=== PATIENT | female | born 1935 | race African-American/Black ===

== ENCOUNTER 2017-03-26 21:41 | Inpatient (IN) | payer MEDICARE, MEDICAID ==
[~2017-03-26] VITALS: Ht 154.9 cm; Wt 85.7 kg
[~2017-03-26 21:41] MED LIST: ASPI-1159 PO; ATOR10TA69 PO; CHOL100046 PO; DOCU-138 PO; HYDR100T26 PO; LOSA100T14 PO; METO25TA6 PO; NEPVIT PO; NIFE30TA94 PO; SEVE800T8 PO
[2017-03-26 23:13] LABS: BASOPHILS % 0.5 % (0.0-2.0); EOSINOPHILS % 1.3 % (0.0-5.0); HEMATOCRIT. 31.8 % (36.0-48.0); HEMOGLOBIN. 10.4 g/dL (12.0-16.0); LYMPHOCYTES % 10.4 % (20.0-50.0); MEAN CORPUSCULAR HEMOGLOBIN 31.7 pg (28.0-32.0); MONOCYTES % 6.5 % (2.0-8.0); NEUTROPHILS % 81.3 % (40.0-76.0); PLATELET 260 x1000/uL (130-400); RED BLOOD CELL COUNT 3.27 mill/uL (4.2-5.4); RED CELL DISTRIBUTION WIDTH 13.3 % (11.6-14.6)
[2017-03-26 23:18] LABS: CHLORIDE 92 mEq/L (98-107)
[2017-03-26 23:22] LABS: PARTIAL THROMBOPLASTIN TIME 28.1 sec (23.4-31.0); PROTHROMBIN TIME 10.2 sec (9.4-11.6)
[2017-03-26 23:29] LABS: PHOSPHORUS 4.3 mg/dL (2.5-4.9); TROPONIN I < 0.02 ng/mL (0.00-0.04)
[2017-03-27] MEDS ORDERED: CLONIDINE 0.2MG TABLET PO ONE (02:45)
[2017-03-27 11:50] VITALS: BP 153/61
[2017-03-27] MEDS ORDERED: HYDRALAZINE 20MG/ML VIAL IV PRN (14:15)
[2017-03-27] MEDS ORDERED: CLONIDINE 0.1MG TABLET PO PRN (14:30)
[2017-03-27] MEDS: NIFEDIPINE XL 30MG TAB PO SCH ×2 (14:30→21:29)
[2017-03-27 16:00] VITALS: BP 166/56
[2017-03-27] MEDS ORDERED: PNEUMOCOCCAL 23-VAL P-SAC VAC 0.5 ML IM ONE (16:15)
[2017-03-27] MEDS ORDERED: DEXTROSE 50% WATER 50ML SYRINGE IV PRN (18:00)
[2017-03-27] MEDS: ASPIRIN 81MG EC TABLET PO SCH (18:38)
[2017-03-27] MEDS: LOSARTAN POTASSIUM 50 MG TABLET PO SCH ×2 (18:43→21:22)
[2017-03-27] MEDS: NITROGLYCERIN OINT 1GM/INCH UDPKT TD SCH (18:48)
[2017-03-27 20:00] VITALS: BP 170/48
[2017-03-27] MEDS: METOPROLOL TARTRATE 25MG TABLET PO SCH (21:00)
[2017-03-27] MEDS: ATORVASTATIN CALCIUM 10MG TABLET PO SCH ×2 (21:12→21:22)
[2017-03-27] MEDS: BLOOD SUGAR DIAGNOSTIC STRIP TEST SCH ×2 (21:16→21:23)
[2017-03-27 21:27] VITALS: BP 150/48
[2017-03-27] MEDS: INSULIN LISPRO 100 UNITS/ML SUBCUT SCH (21:27)
[2017-03-27] MEDS: HYDRALAZINE HCL 25MG TABLET PO SCH (21:29)
[2017-03-28] VITALS: BP 172/60
[2017-03-28] MEDS: NITROGLYCERIN OINT 1GM/INCH UDPKT TD SCH ×3 (00:57→12:00)
[2017-03-28 04:00] VITALS: BP 164/64
[2017-03-28 05:43] VITALS: BP 168/65
[2017-03-28] MEDS: HYDRALAZINE HCL 25MG TABLET PO SCH ×2 (05:44→13:28)
[2017-03-28 06:21] LABS: BASOPHILS % 0.9 % (0.0-2.0); EOSINOPHILS % 1.4 % (0.0-5.0); HEMATOCRIT. 29.7 % (36.0-48.0); HEMOGLOBIN. 9.8 g/dL (12.0-16.0); LYMPHOCYTES % 10.8 % (20.0-50.0); MEAN CORPUSCULAR HEMOGLOBIN 31.9 pg (28.0-32.0); MEAN CORPUSCULAR VOLUME 97.1 fL (81.0-99.0); MEAN PLATELET VOLUME 9.4 fl (7.4-10.4); MONOCYTES % 7.5 % (2.0-8.0); NEUTROPHILS % 79.4 % (40.0-76.0); PLATELET 256 x1000/uL (130-400); RED BLOOD CELL COUNT 3.06 mill/uL (4.2-5.4); RED CELL DISTRIBUTION WIDTH 13.2 % (11.6-14.6)
[2017-03-28] MEDS: INSULIN LISPRO 100 UNITS/ML SUBCUT SCH ×2 (06:22→12:27)
[2017-03-28 06:57] LABS: CHLORIDE 99 mEq/L (98-107); CREATINE KINASE 51 IU/L (26-192); CREATINE KINASE MB FRACTION 0.6 ng/mL (0.5-3.6); HDL CHOLESTEROL 79 mg/dL (40-59); LDL CHOLESTEROL 53 mg/dL (5-100); PHOSPHORUS 3.6 mg/dL (2.5-4.9); TROPONIN I < 0.02 ng/mL (0.00-0.04)
[2017-03-28] MEDS ORDERED: MIDAZOLAM HCL 2 MG/2 ML VIAL ONE (07:42)
[2017-03-28] MEDS ORDERED: IODIXANOL 320MG/ML 100 ML BOTTLE IV ONE (07:43)
[2017-03-28] MEDS ORDERED: FENTANYL CITRATE/PF 50MCG/ML 2ML VIAL ONE (07:43)
[2017-03-28] MEDS ORDERED: LIDOCAINE HCL 1% 20ML VIAL (Pyxis) INJ ONE (07:44)
[2017-03-28] MEDS ORDERED: ASPIRIN/SOD BICARB/CITRIC ACID 324MG TAB EFF ONE (07:49)
[2017-03-28] MEDS ORDERED: ONDANSETRON HCL 4MG/2ML VIAL IV PRN (08:45)
[2017-03-28] MEDS ORDERED: ACETAMINOPHEN 325MG TABLET PO PRN (08:45)
[2017-03-28] MEDS ORDERED: ATROPINE SULFATE 1MG/10ML SYR IV PRN (08:45)
[2017-03-28] MEDS ORDERED: MORPHINE SULFATE 4 MG/ML CPJ (NOT FOR IM USE) IV PRN (09:00)
[2017-03-28] MEDS ORDERED: NICARDIPINE 100MCG/ML 10ML VIAL (CATH LAB) IV ONE (11:27)
[2017-03-28] MEDS ORDERED: NITROGLYCERIN 50MCG/ML 10ML VIAL (CATH LAB) IV ONE (11:27)
[2017-03-28] MEDS ORDERED: HEPARIN SODIUM 1,000 UNIT/1ML VIAL IV ONE (11:27)
[2017-03-28 11:43] VITALS: BP 186/56
[2017-03-28] MEDS: ASPIRIN 81MG EC TABLET PO SCH (11:59)
[2017-03-28] MEDS: LOSARTAN POTASSIUM 50 MG TABLET PO SCH (11:59)
[2017-03-28] MEDS: NIFEDIPINE XL 30MG TAB PO SCH (12:00)
[2017-03-28] MEDS: METOPROLOL TARTRATE 25MG TABLET PO SCH (12:00)
[2017-03-28] MEDS: BLOOD SUGAR DIAGNOSTIC STRIP TEST SCH (12:07)
[2017-03-28 13:48] VITALS: BP 157/44
== END 2017-03-28 14:00 | disposition home or self-care (01) | DRG 286 ==
LOC: ER 21:43 → 8WST 23:44 → EDBEDREQTM 23:46 → EDBEDREQ 23:46 → ENRESERV 03-27 10:41
PROVIDERS: ADMIT Internal Medicine; ATTEND Internal Medicine
PROC: B2151ZZ Fluoroscopy of Left Heart using Low Osmolar Contrast (ICD-10-PCS; 2017-03-28)
PROC: B2111ZZ Fluoroscopy of Multiple Coronary Arteries using Low Osmolar Contrast (ICD-10-PCS; 2017-03-28)
PROC: 4A023N7 Measurement of Cardiac Sampling and Pressure, Left Heart, Percutaneous Approach (ICD-10-PCS; principal; 2017-03-28 09:00)
DX: R07.89 Other chest pain (principal); N18.6 End stage renal disease; E46 Unspecified protein-calorie malnutrition; E11.22 Type 2 diabetes mellitus with diabetic chronic kidney disease; E11.65 Type 2 diabetes mellitus with hyperglycemia; I12.0 Hypertensive chronic kidney disease with stage 5 chronic kidney disease or end stage renal disease; K21.9 Gastro-esophageal reflux disease without esophagitis; E78.00 Pure hypercholesterolemia, unspecified; D63.8 Anemia in other chronic diseases classified elsewhere; D72.829 Elevated white blood cell count, unspecified; Z99.2 Dependence on renal dialysis; Z79.82 Long term (current) use of aspirin; Z90.49 Acquired absence of other specified parts of digestive tract; Z79.899 Other long term (current) drug therapy; Z68.35 Body mass index [BMI] 35.0-35.9, adult
CPT/HCPCS: 36415; 71045; 80053; 80061; 82550; 82553; 82962; 83036; 83690; 83735; 83880; 84100; 84443; 84484; 85025; 85379; 85610; 85730; 90732; 93005; 93458; 99285; C1769; C1893; J1644; J1815; J2250; J3010; J3490; Q9967

== ENCOUNTER 2019-10-15 08:10 | Inpatient (IN) | payer MEDICARE, MEDICAID ==
[~2019-10-15] VITALS: Ht 162.6 cm; Wt 74.4 kg
[~2019-10-15 08:10] MED LIST changes: -ASPI-1159 PO; +ASPI-1497 PO; +BENA20TA10 MT; +HYDR100T26 MT; -HYDR100T26 PO; -LOSA100T14 PO; -NIFE30TA94 PO
[2019-10-15] MEDS ORDERED: SODIUM CHLORIDE 0.9% 1,000 ML IV ONE (09:06)
[2019-10-15 09:24] LABS: HEMATOCRIT. 30.6 % (36.0-48.0); HEMOGLOBIN. 10.2 g/dL (12.0-16.0); MEAN CORPUSCULAR HEMOGLOBIN 33.5 pg (28.0-32.0); MEAN CORPUSCULAR VOLUME 100.6 fL (81.0-99.0); MEAN PLATELET VOLUME 9.3 fl (7.4-10.4); PLATELET 207 x1000/uL (130-400); RED BLOOD CELL COUNT 3.04 mill/uL (4.2-5.4); RED CELL DISTRIBUTION WIDTH 13.6 % (11.6-14.6)
[2019-10-15 09:34] LABS: CHLORIDE 95 mEq/L (98-107)
[2019-10-15 09:36] LABS: BG BASE EXCESS -3.4 mmol/L (-2.0-2.0); BG CARBOXYHEMOGLOBIN 0.3 % (0.5-1.5); BG DEOXYHEMOGLOBIN 3.2 % (0.0-5.0); BG HCO3 ACT 20.5 mmol/L (22.0-26.0); BG METHEMOGLOBIN 0.1 % (0.0-1.5); BG OXYGEN SATURATION 96.8 % (92.0-98.5); BG OXYHEMOGLOBIN 96.4 % (94.0-97.0); BG PCO2 32.8 mmHg (35.0-45.0); BG PH 7.414 (7.350-7.450); BG PO2 96.6 mmHg (75.0-100.0); BG SAMPLE SITE LEFT RADIAL; BG TOTAL HEMOGLOBIN 10.9 g/dL (12.0-18.0); BG VENT MODE ROOM AIR
[2019-10-15 09:38] LABS: ETHANOL BLOOD < 10 mg/dL
[2019-10-15 09:42] LABS: CREATINE KINASE 89 IU/L (26-192)
[2019-10-15 09:51] LABS: PLATELET ESTIMATE NORMAL
[2019-10-15] MEDS ORDERED: LABETALOL 5MG/ML SYR 20 MG/4 ML SYRINGE IV ONE (11:00)
[2019-10-15] MEDS ORDERED: INSULIN REGULAR (HUMULIN R) 300UNITS/3ML SUBCUT ONE (11:00)
[2019-10-15] MEDS ORDERED: ACETAMINOPHEN 325MG TABLET PO PRN ×2 (16:00)
[2019-10-15] MEDS ORDERED: ONDANSETRON HCL 4MG/2ML INJ IV PRN (16:00)
[2019-10-15] MEDS ORDERED: DEXTROSE 50% WATER 50ML SYRINGE IV PRN (16:00)
[2019-10-15] MEDS ORDERED: GUAIFENESIN 200MG/10ML SUGAR FREE UDC PO PRN (16:00)
[2019-10-15] MEDS ORDERED: HYDROCODONE/ACETAMINOPHEN 10/325MG TABLET PO PRN (16:00)
[2019-10-15] MEDS ORDERED: ENOXAPARIN 40MG/0.4ML SYR SUBCUT SCH (16:00)
[2019-10-15] MEDS ORDERED: MAGNESIUM/ALUMINUM HYDROXIDE/SIMETHICONE 30ML UDC PO PRN (16:00)
[2019-10-15] MEDS: CLONIDINE 0.1MG TABLET PO PRN (18:18)
[2019-10-15] MEDS: ENOXAPARIN 30MG/0.3ML SYR SUBCUT SCH (18:18)
[2019-10-15] MEDS: BLOOD SUGAR DIAGNOSTIC STRIP TEST SCH ×2 (18:24→21:00)
[2019-10-15] MEDS: INSULIN LISPRO 100 UNITS/ML SUBCUT SCH ×2 (18:28→22:20)
[2019-10-15] MEDS ORDERED: LABETALOL 5MG/ML SYR 20 MG/4 ML SYRINGE IV NR (19:17)
[2019-10-15 21:30] VITALS: BP 206/173
[2019-10-15] MEDS: FAMOTIDINE 20MG TABLET PO SCH (22:19)
[2019-10-15] MEDS: ZOLPIDEM TARTRATE 5MG TABLET PO PRN (22:24)
[2019-10-15] MEDS: SODIUM CHLORIDE 0.9% INJ 3ML FLUSH IVF SCH (22:33)
[2019-10-16] VITALS: BP 163/43
[2019-10-16] MEDS: CLONIDINE 0.1MG TABLET PO PRN (00:42)
[2019-10-16] MEDS: DIPHENHYDRAMINE 50MG/ML VIAL IV PRN (02:26)
[2019-10-16 04:00] VITALS: BP 112/65
[2019-10-16] MEDS: BLOOD SUGAR DIAGNOSTIC STRIP TEST SCH ×4 (06:49→21:03)
[2019-10-16 07:29] LABS: CHLORIDE 98 mEq/L (98-107)
[2019-10-16 07:38] LABS: PHOSPHORUS 4.3 mg/dL (2.5-4.9)
[2019-10-16 07:55] LABS: BASOPHILS % 0.8 % (0.0-2.0); EOSINOPHILS % 0.6 % (0.0-5.0); HEMATOCRIT. 27.3 % (36.0-48.0); HEMOGLOBIN. 9.2 g/dL (12.0-16.0); LYMPHOCYTES % 8.1 % (20.0-50.0); MEAN CORPUSCULAR HEMOGLOBIN 33.4 pg (28.0-32.0); MONOCYTES % 7.4 % (2.0-8.0); NEUTROPHILS % 83.1 % (40.0-76.0); PLATELET 197 x1000/uL (130-400); RED BLOOD CELL COUNT 2.76 mill/uL (4.2-5.4); RED CELL DISTRIBUTION WIDTH 13.3 % (11.6-14.6)
[2019-10-16 08:00] VITALS: BP 202/76
[2019-10-16] MEDS: FOLIC ACID/VITAMIN B COMP W-C TABLET PO SCH (08:45)
[2019-10-16] MEDS: AMLODIPINE 10MG TABLET PO SCH (08:46)
[2019-10-16] MEDS: BENAZEPRIL 10MG TABLET PO SCH (08:46)
[2019-10-16] MEDS: ISOSORBIDE MONONITRATE 30MG TABLET SR 24HR PO SCH (08:46)
[2019-10-16] MEDS: INSULIN LISPRO 100 UNITS/ML SUBCUT SCH ×4 (08:47→21:00)
[2019-10-16] MEDS ORDERED: MEGE40TA7 PO (09:52)
[2019-10-16] MEDS ORDERED: ISOS30TA6 PO (09:52)
[2019-10-16] MEDS ORDERED: ZOLP5TAB2 PO (09:52)
[2019-10-16] MEDS ORDERED: VALA100044 PO (09:52)
[2019-10-16] MEDS ORDERED: AMLO10TA4 PO (09:52)
[2019-10-16] MEDS ORDERED: LACT10SO6 PO (09:52)
[2019-10-16] MEDS ORDERED: INSU100C6 SQ (09:52)
[2019-10-16 12:53] VITALS: BP 207/89
[2019-10-16] MEDS: CLONIDINE 0.2MG TABLET PO PRN ×2 (13:02→22:41)
[2019-10-16] MEDS: SODIUM CHLORIDE 0.9% INJ 3ML FLUSH IVF SCH ×2 (13:07→21:09)
[2019-10-16 16:00] VITALS: BP 136/53
[2019-10-16] MEDS: ENOXAPARIN 30MG/0.3ML SYR SUBCUT SCH (17:37)
[2019-10-16 20:00] VITALS: BP 210/75
[2019-10-16] MEDS: FAMOTIDINE 20MG TABLET PO SCH (21:03)
[2019-10-17] VITALS (8 sets, daily range): BP systolic 133–210; BP diastolic 66–79
[2019-10-17] MEDS: SODIUM CHLORIDE 0.9% INJ 3ML FLUSH IVF SCH ×3 (05:17→21:55)
[2019-10-17] MEDS: BLOOD SUGAR DIAGNOSTIC STRIP TEST SCH ×4 (07:01→21:55)
[2019-10-17] MEDS: INSULIN LISPRO 100 UNITS/ML SUBCUT SCH ×4 (07:35→21:54)
[2019-10-17] MEDS: FOLIC ACID/VITAMIN B COMP W-C TABLET PO SCH (09:09)
[2019-10-17] MEDS: AMLODIPINE 10MG TABLET PO SCH (09:09)
[2019-10-17] MEDS: BENAZEPRIL 10MG TABLET PO SCH (09:10)
[2019-10-17] MEDS: ISOSORBIDE MONONITRATE 30MG TABLET SR 24HR PO SCH (09:10)
[2019-10-17] MEDS: CLONIDINE 0.2MG TABLET PO PRN ×2 (09:12→17:48)
[2019-10-17] MEDS: HYDRALAZINE HCL 50MG TABLET PO SCH ×2 (13:03→21:55)
[2019-10-17] MEDS: METOPROLOL TARTRATE 25MG TABLET PO SCH ×2 (13:03→21:55)
[2019-10-17] MEDS: ENOXAPARIN 30MG/0.3ML SYR SUBCUT SCH (17:47)
[2019-10-17 18:14] LABS: VITAMIN B12 SERUM > 2000.0 pg/mL (211-911)
[2019-10-17] MEDS: FAMOTIDINE 20MG TABLET PO SCH (21:55)
[2019-10-18] VITALS: BP 180/65
[2019-10-18] MEDS: CLONIDINE 0.2MG TABLET PO PRN ×2 (00:30→18:23)
[2019-10-18 04:00] VITALS: BP 120/68
[2019-10-18] MEDS: SODIUM CHLORIDE 0.9% INJ 3ML FLUSH IVF SCH ×3 (06:34→22:00)
[2019-10-18] MEDS: BLOOD SUGAR DIAGNOSTIC STRIP TEST SCH ×4 (06:34→20:24)
[2019-10-18 08:00] VITALS: BP 132/75
[2019-10-18] MEDS: INSULIN LISPRO 100 UNITS/ML SUBCUT SCH ×4 (08:12→20:24)
[2019-10-18] MEDS: AMLODIPINE 10MG TABLET PO SCH (08:13)
[2019-10-18] MEDS: BENAZEPRIL 10MG TABLET PO SCH (08:13)
[2019-10-18] MEDS: HYDRALAZINE HCL 50MG TABLET PO SCH ×3 (08:13→21:00)
[2019-10-18] MEDS: METOPROLOL TARTRATE 25MG TABLET PO SCH ×3 (08:13→21:00)
[2019-10-18] MEDS: ZOLPIDEM TARTRATE 5MG TABLET PO PRN (08:14)
[2019-10-18] MEDS: FOLIC ACID/VITAMIN B COMP W-C TABLET PO SCH (08:14)
[2019-10-18] MEDS: ISOSORBIDE MONONITRATE 30MG TABLET SR 24HR PO SCH (08:14)
[2019-10-18 12:00] VITALS: BP 199/64
[2019-10-18] MEDS: ENOXAPARIN 30MG/0.3ML SYR SUBCUT SCH (15:47)
[2019-10-18 15:56] LABS: BASOPHILS % 0.9 % (0.0-2.0); EOSINOPHILS % 1.1 % (0.0-5.0); HEMATOCRIT. 31.6 % (36.0-48.0); HEMOGLOBIN. 10.8 g/dL (12.0-16.0); LYMPHOCYTES % 7.2 % (20.0-50.0); MEAN PLATELET VOLUME 8.8 fl (7.4-10.4); MONOCYTES % 9.2 % (2.0-8.0); NEUTROPHILS % 81.6 % (40.0-76.0); PLATELET 211 x1000/uL (130-400); RED BLOOD CELL COUNT 3.19 mill/uL (4.2-5.4); RED CELL DISTRIBUTION WIDTH 13.2 % (11.6-14.6)
[2019-10-18 16:00] VITALS: BP 185/74
[2019-10-18 20:00] VITALS: BP 177/60
[2019-10-18] MEDS: FAMOTIDINE 20MG TABLET PO SCH ×2 (20:23→21:00)
[2019-10-18] MEDS ORDERED: CLONIDINE HCL 0.3MG/24HR PATCH TD SCH (22:00)
[2019-10-19] VITALS: BP 185/53
[2019-10-19 04:00] VITALS: BP 168/46
[2019-10-19] MEDS: SODIUM CHLORIDE 0.9% INJ 3ML FLUSH IVF SCH ×3 (05:31→20:48)
[2019-10-19] MEDS: INSULIN LISPRO 100 UNITS/ML SUBCUT SCH ×4 (07:43→20:42)
[2019-10-19 08:00] VITALS: BP 192/54
[2019-10-19] MEDS: ISOSORBIDE MONONITRATE 30MG TABLET SR 24HR PO SCH (09:00)
[2019-10-19] MEDS: METOPROLOL TARTRATE 25MG TABLET PO SCH ×3 (09:00→20:48)
[2019-10-19] MEDS: FOLIC ACID/VITAMIN B COMP W-C TABLET PO SCH (09:00)
[2019-10-19] MEDS: HYDRALAZINE HCL 50MG TABLET PO SCH ×2 (09:00→20:48)
[2019-10-19] MEDS: AMLODIPINE 10MG TABLET PO SCH (09:05)
[2019-10-19] MEDS: BENAZEPRIL 10MG TABLET PO SCH (09:09)
[2019-10-19 12:00] VITALS: BP 193/54
[2019-10-19] MEDS: BLOOD SUGAR DIAGNOSTIC STRIP TEST SCH ×3 (12:20→20:41)
[2019-10-19 16:00] VITALS: BP 207/52
[2019-10-19] MEDS: ENOXAPARIN 30MG/0.3ML SYR SUBCUT SCH (16:00)
[2019-10-19] MEDS ORDERED: DEXT 5%/0.45% NACL 1000ML 1,000 ML IV ONE (18:15)
[2019-10-19] MEDS: LABETALOL 5MG/ML SYR 20 MG/4 ML SYRINGE IV PRN (18:42)
[2019-10-19 20:00] VITALS: BP 188/57
[2019-10-19] MEDS ORDERED: LABETALOL 5MG/ML SYR 20 MG/4 ML SYRINGE IV NR (20:30)
[2019-10-19] MEDS: FAMOTIDINE 20MG TABLET PO SCH (20:47)
[2019-10-20] VITALS (7 sets, daily range): BP systolic 153–177; BP diastolic 40–69
[2019-10-20] MEDS: LABETALOL 5MG/ML SYR 20 MG/4 ML SYRINGE IV PRN (03:54)
[2019-10-20] MEDS: CLONIDINE 0.2MG TABLET PO PRN (05:01)
[2019-10-20] MEDS: SODIUM CHLORIDE 0.9% INJ 3ML FLUSH IVF SCH ×2 (05:29→13:15)
[2019-10-20] MEDS: BLOOD SUGAR DIAGNOSTIC STRIP TEST SCH ×4 (07:55→21:48)
[2019-10-20] MEDS: ISOSORBIDE MONONITRATE 30MG TABLET SR 24HR PO SCH (10:00)
[2019-10-20] MEDS: METOPROLOL TARTRATE 25MG TABLET PO SCH ×2 (10:00→21:48)
[2019-10-20] MEDS: BENAZEPRIL 10MG TABLET PO SCH (10:01)
[2019-10-20] MEDS: FOLIC ACID/VITAMIN B COMP W-C TABLET PO SCH (10:01)
[2019-10-20] MEDS: AMLODIPINE 10MG TABLET PO SCH (10:01)
[2019-10-20] MEDS: HYDRALAZINE HCL 50MG TABLET PO SCH ×2 (10:01→21:48)
[2019-10-20] MEDS: INSULIN LISPRO 100 UNITS/ML SUBCUT SCH ×5 (10:03→21:00)
[2019-10-20] MEDS: ENOXAPARIN 30MG/0.3ML SYR SUBCUT SCH (17:59)
[2019-10-20] MEDS: FAMOTIDINE 20MG TABLET PO SCH (21:48)
[2019-10-20] MEDS: DIPHENHYDRAMINE 50MG/ML VIAL IV PRN (21:49)
[2019-10-21 00:25] VITALS: BP 139/50
[2019-10-21 04:00] VITALS: BP 176/55
[2019-10-21] MEDS: SODIUM CHLORIDE 0.9% INJ 3ML FLUSH IVF SCH ×4 (05:42→21:18)
[2019-10-21] MEDS: LABETALOL 5MG/ML SYR 20 MG/4 ML SYRINGE IV PRN (05:43)
[2019-10-21] MEDS: BLOOD SUGAR DIAGNOSTIC STRIP TEST SCH ×4 (06:53→21:17)
[2019-10-21 08:00] VITALS: BP 160/60
[2019-10-21] MEDS: INSULIN LISPRO 100 UNITS/ML SUBCUT SCH ×4 (08:38→21:00)
[2019-10-21] MEDS: AMLODIPINE 10MG TABLET PO SCH (08:39)
[2019-10-21] MEDS: HYDRALAZINE HCL 50MG TABLET PO SCH ×2 (08:39→21:17)
[2019-10-21] MEDS: FOLIC ACID/VITAMIN B COMP W-C TABLET PO SCH (08:39)
[2019-10-21] MEDS: BENAZEPRIL 10MG TABLET PO SCH (08:39)
[2019-10-21] MEDS: METOPROLOL TARTRATE 25MG TABLET PO SCH ×2 (08:39→21:17)
[2019-10-21] MEDS: ISOSORBIDE MONONITRATE 30MG TABLET SR 24HR PO SCH (08:39)
[2019-10-21 12:00] VITALS: BP 123/64
[2019-10-21] MEDS: DIPHENHYDRAMINE 50MG/ML VIAL IV PRN ×3 (15:33→22:54)
[2019-10-21] MEDS: ENOXAPARIN 30MG/0.3ML SYR SUBCUT SCH (15:33)
[2019-10-21 16:20] VITALS: BP 146/69
[2019-10-21 20:08] VITALS: BP 119/71
[2019-10-21] MEDS: FAMOTIDINE 20MG TABLET PO SCH (21:17)
[2019-10-22] VITALS (7 sets, daily range): BP systolic 106–168; BP diastolic 41–82
[2019-10-22] MEDS: CLONIDINE 0.2MG TABLET PO PRN (06:06)
[2019-10-22] MEDS: SODIUM CHLORIDE 0.9% INJ 3ML FLUSH IVF SCH ×3 (06:06→21:43)
[2019-10-22] MEDS: BLOOD SUGAR DIAGNOSTIC STRIP TEST SCH ×4 (06:28→21:42)
[2019-10-22 07:53] LABS: BASOPHILS % 0.9 % (0.0-2.0); EOSINOPHILS % 0.9 % (0.0-5.0); HEMATOCRIT. 30.6 % (36.0-48.0); HEMOGLOBIN. 10.3 g/dL (12.0-16.0); LYMPHOCYTES % 16.4 % (20.0-50.0); MEAN CORPUSCULAR HEMOGLOBIN 33.5 pg (28.0-32.0); MEAN CORPUSCULAR VOLUME 99.3 fL (81.0-99.0); MEAN PLATELET VOLUME 8.9 fl (7.4-10.4); MONOCYTES % 11.6 % (2.0-8.0); NEUTROPHILS % 70.2 % (40.0-76.0); PLATELET 246 x1000/uL (130-400); RED BLOOD CELL COUNT 3.08 mill/uL (4.2-5.4)
[2019-10-22 07:58] LABS: CHLORIDE 97 mEq/L (98-107)
[2019-10-22 08:06] LABS: PHOSPHORUS 5.1 mg/dL (2.5-4.9)
[2019-10-22] MEDS: BENAZEPRIL 10MG TABLET PO SCH (09:06)
[2019-10-22] MEDS: AMLODIPINE 10MG TABLET PO SCH (09:06)
[2019-10-22] MEDS: HYDRALAZINE HCL 50MG TABLET PO SCH ×2 (09:06→21:43)
[2019-10-22] MEDS: FOLIC ACID/VITAMIN B COMP W-C TABLET PO SCH (09:06)
[2019-10-22] MEDS: INSULIN LISPRO 100 UNITS/ML SUBCUT SCH ×4 (09:07→21:02)
[2019-10-22] MEDS: METOPROLOL TARTRATE 25MG TABLET PO SCH ×2 (09:40→21:42)
[2019-10-22] MEDS: ISOSORBIDE MONONITRATE 30MG TABLET SR 24HR PO SCH (09:40)
[2019-10-22] MEDS: ENOXAPARIN 30MG/0.3ML SYR SUBCUT SCH (16:26)
[2019-10-22] MEDS: FAMOTIDINE 20MG TABLET PO SCH (21:42)
[2019-10-22] MEDS: DIPHENHYDRAMINE 50MG/ML VIAL IV PRN (21:43)
[2019-10-23] VITALS (7 sets, daily range): BP systolic 121–150; BP diastolic 40–85
[2019-10-23] MEDS: SODIUM CHLORIDE 0.9% INJ 3ML FLUSH IVF SCH ×2 (05:30→14:34)
[2019-10-23] MEDS: BLOOD SUGAR DIAGNOSTIC STRIP TEST SCH ×2 (06:42→12:22)
[2019-10-23] MEDS: INSULIN LISPRO 100 UNITS/ML SUBCUT SCH ×2 (07:50→13:22)
[2019-10-23] MEDS: METOPROLOL TARTRATE 25MG TABLET PO SCH (09:00)
[2019-10-23] MEDS: AMLODIPINE 10MG TABLET PO SCH (09:00)
[2019-10-23] MEDS: HYDRALAZINE HCL 50MG TABLET PO SCH (09:00)
[2019-10-23] MEDS: BENAZEPRIL 10MG TABLET PO SCH (09:00)
[2019-10-23] MEDS: ISOSORBIDE MONONITRATE 30MG TABLET SR 24HR PO SCH (09:00)
[2019-10-23] MEDS: FOLIC ACID/VITAMIN B COMP W-C TABLET PO SCH (09:06)
[2019-10-23] MEDS: ENOXAPARIN 30MG/0.3ML SYR SUBCUT SCH (16:42)
== END 2019-10-23 17:14 | DRG 70 ==
LOC: ER 08:10 → 6WST 10:53 → ENRESERV 20:13
PROVIDERS: ADMIT Internal Medicine; ATTEND Internal Medicine
PROC: 5A1D70Z Performance of Urinary Filtration, Intermittent, Less than 6 Hours Per Day (ICD-10-PCS; principal; 2019-10-16)
PROC: 5A1D70Z Performance of Urinary Filtration, Intermittent, Less than 6 Hours Per Day (ICD-10-PCS; 2019-10-17)
PROC: 5A1D70Z Performance of Urinary Filtration, Intermittent, Less than 6 Hours Per Day (ICD-10-PCS; 2019-10-21)
PROC: 5A1D70Z Performance of Urinary Filtration, Intermittent, Less than 6 Hours Per Day (ICD-10-PCS; 2019-10-22)
DX: G93.41 Metabolic encephalopathy (principal); N18.6 End stage renal disease; I12.0 Hypertensive chronic kidney disease with stage 5 chronic kidney disease or end stage renal disease; E87.2 Acidosis; F23 Brief psychotic disorder; N25.81 Secondary hyperparathyroidism of renal origin; E11.65 Type 2 diabetes mellitus with hyperglycemia; M19.90 Unspecified osteoarthritis, unspecified site; E11.22 Type 2 diabetes mellitus with diabetic chronic kidney disease; M48.00 Spinal stenosis, site unspecified; Z79.82 Long term (current) use of aspirin; Z99.2 Dependence on renal dialysis; Z79.899 Other long term (current) drug therapy; R62.7 Adult failure to thrive; Z68.28 Body mass index [BMI] 28.0-28.9, adult; G90.9 Disorder of the autonomic nervous system, unspecified
CPT/HCPCS: 36415; 36600; 70551; 71045; 80048; 80053; 80307; 80320; 80329; 82140; 82375; 82550; 82607; 82805; 82962; 83036; 83605; 83735; 83880; 84100; 84443; 84484; 85025; 93005; 93970; 96372; 97162; 97166; 97530; 99285; J1200; J1650; J1815; J3490; J7030; G0480

== ENCOUNTER 2019-10-23 17:05 | Inpatient (IN) | payer MEDICARE, MEDICAID ==
[~2019-10-23] VITALS: Ht 162.6 cm; Wt 74.4 kg
[~2019-10-23 17:05] MED LIST changes: +AMLO10TA4 PO; +INSU100C6 SQ; +ISOS30TA6 PO; +LACT10SO6 PO; +MEGE40TA7 PO; +VALA100044 PO; +ZOLP5TAB2 PO
[2019-10-23] MEDS ORDERED: MAGNESIUM/ALUMINUM HYDROXIDE/SIMETHICONE 30ML UDC PO PRN (18:00)
[2019-10-23] MEDS ORDERED: DEXTROSE 50% WATER 50ML SYRINGE IV PRN (18:00)
[2019-10-23] MEDS ORDERED: GUAIFENESIN 200MG/10ML SUGAR FREE UDC PO PRN (18:00)
[2019-10-23 18:09] VITALS: BP 142/46
[2019-10-23] MEDS ORDERED: DIPHENHYDRAMINE 50MG/ML VIAL IM PRN (18:28)
[2019-10-23] MEDS ORDERED: ACETAMINOPHEN 325MG TABLET PO PRN (18:29)
[2019-10-23] MEDS ORDERED: ONDANSETRON HCL 4MG/2ML INJ IV PRN (18:29)
[2019-10-23 18:44] VITALS: BP 142/46
[2019-10-23 20:00] VITALS: BP 157/50
[2019-10-23] MEDS: BLOOD SUGAR DIAGNOSTIC STRIP TEST SCH (21:48)
[2019-10-23] MEDS: INSULIN LISPRO 100 UNITS/ML SUBCUT SCH (22:22)
[2019-10-24] MEDS: FAMOTIDINE 20MG TABLET PO SCH ×2 (00:08→21:40)
[2019-10-24] MEDS: HYDRALAZINE HCL 50MG TABLET PO SCH ×3 (00:09→21:41)
[2019-10-24] MEDS: METOPROLOL TARTRATE 25MG TABLET PO SCH ×3 (00:09→21:41)
[2019-10-24] MEDS: BLOOD SUGAR DIAGNOSTIC STRIP TEST SCH ×4 (06:18→21:41)
[2019-10-24] MEDS: INSULIN LISPRO 100 UNITS/ML SUBCUT SCH ×4 (07:03→22:20)
[2019-10-24 08:00] VITALS: BP 160/57
[2019-10-24] MEDS: FOLIC ACID/VITAMIN B COMP W-C TABLET PO SCH (08:13)
[2019-10-24] MEDS: ISOSORBIDE MONONITRATE 30MG TABLET SR 24HR PO SCH (08:14)
[2019-10-24] MEDS: BENAZEPRIL 10MG TABLET PO SCH (08:14)
[2019-10-24] MEDS: AMLODIPINE 10MG TABLET PO SCH (08:15)
[2019-10-24] MEDS: ENOXAPARIN 30MG/0.3ML SYR SUBCUT SCH (08:15)
[2019-10-24 20:00] VITALS: BP 159/48
[2019-10-24 23:37] VITALS: BP 144/55
[2019-10-25] MEDS: BLOOD SUGAR DIAGNOSTIC STRIP TEST SCH ×5 (05:43→21:23)
[2019-10-25] MEDS: INSULIN LISPRO 100 UNITS/ML SUBCUT SCH ×4 (06:33→21:00)
[2019-10-25 08:00] VITALS: BP 153/54
[2019-10-25] MEDS: AMLODIPINE 10MG TABLET PO SCH (08:15)
[2019-10-25] MEDS: HYDRALAZINE HCL 50MG TABLET PO SCH ×2 (08:15→21:26)
[2019-10-25] MEDS: ISOSORBIDE MONONITRATE 30MG TABLET SR 24HR PO SCH (08:15)
[2019-10-25] MEDS: FOLIC ACID/VITAMIN B COMP W-C TABLET PO SCH (08:15)
[2019-10-25] MEDS: BENAZEPRIL 10MG TABLET PO SCH (08:15)
[2019-10-25] MEDS: METOPROLOL TARTRATE 25MG TABLET PO SCH ×2 (08:16→21:25)
[2019-10-25] MEDS: ENOXAPARIN 30MG/0.3ML SYR SUBCUT SCH (08:16)
[2019-10-25] MEDS: CLONIDINE HCL 0.3MG/24HR PATCH TD SCH (08:21)
[2019-10-25 20:00] VITALS: BP 158/44
[2019-10-25] MEDS: FAMOTIDINE 20MG TABLET PO SCH (21:23)
[2019-10-26 00:25] VITALS: BP 146/49
[2019-10-26] MEDS: BLOOD SUGAR DIAGNOSTIC STRIP TEST SCH ×4 (05:59→21:28)
[2019-10-26] MEDS: INSULIN LISPRO 100 UNITS/ML SUBCUT SCH ×4 (06:22→21:00)
[2019-10-26 07:52] VITALS: BP 136/46
[2019-10-26] MEDS: METOPROLOL TARTRATE 25MG TABLET PO SCH ×2 (08:21→21:27)
[2019-10-26] MEDS: HYDRALAZINE HCL 50MG TABLET PO SCH ×2 (08:21→21:27)
[2019-10-26] MEDS: BENAZEPRIL 10MG TABLET PO SCH (08:21)
[2019-10-26] MEDS: ENOXAPARIN 30MG/0.3ML SYR SUBCUT SCH (08:21)
[2019-10-26] MEDS: FOLIC ACID/VITAMIN B COMP W-C TABLET PO SCH (08:21)
[2019-10-26] MEDS: AMLODIPINE 10MG TABLET PO SCH (08:21)
[2019-10-26] MEDS: ISOSORBIDE MONONITRATE 30MG TABLET SR 24HR PO SCH (08:21)
[2019-10-26 19:36] VITALS: BP 152/50
[2019-10-26 20:00] VITALS: BP 152/50
[2019-10-26] MEDS: FAMOTIDINE 20MG TABLET PO SCH (21:26)
[2019-10-27] MEDS: BLOOD SUGAR DIAGNOSTIC STRIP TEST SCH ×4 (06:12→21:50)
[2019-10-27 07:58] VITALS: BP 148/45
[2019-10-27] MEDS: FOLIC ACID/VITAMIN B COMP W-C TABLET PO SCH (08:09)
[2019-10-27] MEDS: BENAZEPRIL 10MG TABLET PO SCH (08:10)
[2019-10-27] MEDS: HYDRALAZINE HCL 50MG TABLET PO SCH ×2 (08:10→22:12)
[2019-10-27] MEDS: AMLODIPINE 10MG TABLET PO SCH (08:10)
[2019-10-27] MEDS: METOPROLOL TARTRATE 25MG TABLET PO SCH ×2 (08:10→23:38)
[2019-10-27] MEDS: ISOSORBIDE MONONITRATE 30MG TABLET SR 24HR PO SCH (08:10)
[2019-10-27] MEDS: ENOXAPARIN 30MG/0.3ML SYR SUBCUT SCH (08:10)
[2019-10-27] MEDS: INSULIN LISPRO 100 UNITS/ML SUBCUT SCH ×4 (08:15→22:16)
[2019-10-27 20:00] VITALS: BP 147/50
[2019-10-27] MEDS: FAMOTIDINE 20MG TABLET PO SCH (22:12)
[2019-10-28] MEDS: BLOOD SUGAR DIAGNOSTIC STRIP TEST SCH ×3 (05:49→21:00)
[2019-10-28] MEDS: INSULIN LISPRO 100 UNITS/ML SUBCUT SCH ×4 (06:42→22:43)
[2019-10-28 08:07] VITALS: BP 140/43
[2019-10-28] MEDS: FOLIC ACID/VITAMIN B COMP W-C TABLET PO SCH (08:30)
[2019-10-28] MEDS: ENOXAPARIN 30MG/0.3ML SYR SUBCUT SCH (08:31)
[2019-10-28] MEDS: ISOSORBIDE MONONITRATE 30MG TABLET SR 24HR PO SCH (08:31)
[2019-10-28] MEDS: HYDRALAZINE HCL 50MG TABLET PO SCH ×2 (08:58→22:39)
[2019-10-28] MEDS: BENAZEPRIL 10MG TABLET PO SCH (08:59)
[2019-10-28] MEDS: METOPROLOL TARTRATE 25MG TABLET PO SCH ×2 (08:59→22:38)
[2019-10-28] MEDS: AMLODIPINE 10MG TABLET PO SCH (08:59)
[2019-10-28 13:31] LABS: BASOPHILS % 1.2 % (0.0-2.0); EOSINOPHILS % 2.1 % (0.0-5.0); HEMATOCRIT. 27.9 % (36.0-48.0); HEMOGLOBIN. 9.4 g/dL (12.0-16.0); LYMPHOCYTES % 18.2 % (20.0-50.0); MEAN CORPUSCULAR HEMOGLOBIN 34.3 pg (28.0-32.0); MEAN CORPUSCULAR VOLUME 101.9 fL (81.0-99.0); MEAN PLATELET VOLUME 9.9 fl (7.4-10.4); MONOCYTES % 8.6 % (2.0-8.0); NEUTROPHILS % 69.9 % (40.0-76.0); PLATELET 193 x1000/uL (130-400); RED BLOOD CELL COUNT 2.74 mill/uL (4.2-5.4); RED CELL DISTRIBUTION WIDTH 12.9 % (11.6-14.6)
[2019-10-28 13:47] LABS: CHLORIDE 100 mEq/L (98-107)
[2019-10-28 13:52] LABS: PHOSPHORUS 6.2 mg/dL (2.5-4.9)
[2019-10-28] MEDS: SEVELAMER CARBONATE 800 MG TABLET PO SCH (16:34)
[2019-10-28 20:00] VITALS: BP 158/50
[2019-10-28] MEDS: FAMOTIDINE 20MG TABLET PO SCH (22:37)
[2019-10-29] MEDS: BLOOD SUGAR DIAGNOSTIC STRIP TEST SCH ×4 (06:14→21:00)
[2019-10-29] MEDS: INSULIN LISPRO 100 UNITS/ML SUBCUT SCH ×4 (06:19→22:24)
[2019-10-29 07:48] LABS: HEMATOCRIT. 25.3 % (36.0-48.0); HEMOGLOBIN. 8.6 g/dL (12.0-16.0); LYMPHOCYTES % 15.7 % (20.0-50.0); MEAN CORPUSCULAR HEMOGLOBIN 33.5 pg (28.0-32.0); MEAN CORPUSCULAR VOLUME 98.7 fL (81.0-99.0); MEAN PLATELET VOLUME 8.8 fl (7.4-10.4); NEUTROPHILS % 70.3 % (40.0-76.0); PLATELET 217 x1000/uL (130-400); RED BLOOD CELL COUNT 2.57 mill/uL (4.2-5.4); RED CELL DISTRIBUTION WIDTH 12.6 % (11.6-14.6)
[2019-10-29 08:29] VITALS: BP 146/46
[2019-10-29] MEDS: SEVELAMER CARBONATE 800 MG TABLET PO SCH ×3 (08:44→17:49)
[2019-10-29] MEDS: BENAZEPRIL 10MG TABLET PO SCH (08:45)
[2019-10-29] MEDS: METOPROLOL TARTRATE 25MG TABLET PO SCH ×2 (08:45→22:19)
[2019-10-29] MEDS: FOLIC ACID/VITAMIN B COMP W-C TABLET PO SCH (08:45)
[2019-10-29] MEDS: AMLODIPINE 10MG TABLET PO SCH (08:46)
[2019-10-29] MEDS: ISOSORBIDE MONONITRATE 30MG TABLET SR 24HR PO SCH (08:46)
[2019-10-29] MEDS: ENOXAPARIN 30MG/0.3ML SYR SUBCUT SCH (08:46)
[2019-10-29] MEDS: HYDRALAZINE HCL 50MG TABLET PO SCH ×2 (08:46→22:18)
[2019-10-29 20:00] VITALS: BP 153/47
[2019-10-29] MEDS: FAMOTIDINE 20MG TABLET PO SCH (22:18)
[2019-10-30] MEDS: BLOOD SUGAR DIAGNOSTIC STRIP TEST SCH ×4 (06:31→21:00)
[2019-10-30] MEDS: INSULIN LISPRO 100 UNITS/ML SUBCUT SCH ×3 (06:35→17:41)
[2019-10-30 07:50] VITALS: BP 120/57
[2019-10-30] MEDS: SEVELAMER CARBONATE 800 MG TABLET PO SCH ×3 (08:10→17:32)
[2019-10-30] MEDS: FOLIC ACID/VITAMIN B COMP W-C TABLET PO SCH (08:11)
[2019-10-30] MEDS: AMLODIPINE 10MG TABLET PO SCH (08:11)
[2019-10-30] MEDS: ENOXAPARIN 30MG/0.3ML SYR SUBCUT SCH (08:12)
[2019-10-30] MEDS: BENAZEPRIL 10MG TABLET PO SCH (08:12)
[2019-10-30] MEDS: METOPROLOL TARTRATE 25MG TABLET PO SCH ×2 (08:12→21:00)
[2019-10-30] MEDS: HYDRALAZINE HCL 50MG TABLET PO SCH ×2 (08:13→11:56)
[2019-10-30] MEDS: ISOSORBIDE MONONITRATE 30MG TABLET SR 24HR PO SCH ×2 (08:13→11:56)
[2019-10-30 11:51] VITALS: BP 157/46
[2019-10-30 20:00] VITALS: BP 153/53
[2019-10-31] MEDS: FAMOTIDINE 20MG TABLET PO SCH ×2 (03:17→20:51)
[2019-10-31] MEDS: HYDRALAZINE HCL 50MG TABLET PO SCH ×3 (03:18→20:54)
[2019-10-31] MEDS: EPOETIN ALFA 10000UNITS/ML VIAL SUBCUT SCH (05:17)
[2019-10-31] MEDS: INSULIN LISPRO 100 UNITS/ML SUBCUT SCH ×5 (05:19→20:59)
[2019-10-31] MEDS: BLOOD SUGAR DIAGNOSTIC STRIP TEST SCH ×4 (06:35→20:54)
[2019-10-31 08:00] VITALS: BP 134/40
[2019-10-31] MEDS: ENOXAPARIN 30MG/0.3ML SYR SUBCUT SCH (08:22)
[2019-10-31] MEDS: AMLODIPINE 10MG TABLET PO SCH (08:23)
[2019-10-31] MEDS: BENAZEPRIL 10MG TABLET PO SCH (08:23)
[2019-10-31] MEDS: SEVELAMER CARBONATE 800 MG TABLET PO SCH ×3 (08:23→17:31)
[2019-10-31] MEDS: FOLIC ACID/VITAMIN B COMP W-C TABLET PO SCH (08:24)
[2019-10-31] MEDS: ISOSORBIDE MONONITRATE 30MG TABLET SR 24HR PO SCH (08:24)
[2019-10-31] MEDS: METOPROLOL TARTRATE 25MG TABLET PO SCH ×2 (08:24→20:53)
[2019-10-31 20:00] VITALS: BP 142/41
[2019-10-31] MEDS ORDERED: ZOLPIDEM TARTRATE 5MG TABLET PO PRN (21:30)
[2019-11-01] MEDS ORDERED: LACTULOSE 20G/30ML UDC PO NR (05:45)
[2019-11-01] MEDS: BLOOD SUGAR DIAGNOSTIC STRIP TEST SCH ×4 (06:15→21:00)
[2019-11-01] MEDS: INSULIN LISPRO 100 UNITS/ML SUBCUT SCH ×4 (06:15→21:00)
[2019-11-01 08:00] VITALS: BP 126/37
[2019-11-01] MEDS: SEVELAMER CARBONATE 800 MG TABLET PO SCH ×3 (08:43→17:00)
[2019-11-01] MEDS: FOLIC ACID/VITAMIN B COMP W-C TABLET PO SCH (08:43)
[2019-11-01] MEDS: ENOXAPARIN 30MG/0.3ML SYR SUBCUT SCH (08:43)
[2019-11-01] MEDS: HYDRALAZINE HCL 50MG TABLET PO SCH (08:44)
[2019-11-01] MEDS: METOPROLOL TARTRATE 25MG TABLET PO SCH (08:44)
[2019-11-01] MEDS: ISOSORBIDE MONONITRATE 30MG TABLET SR 24HR PO SCH (08:44)
[2019-11-01] MEDS: AMLODIPINE 10MG TABLET PO SCH (08:45)
[2019-11-01] MEDS: BENAZEPRIL 10MG TABLET PO SCH (08:45)
[2019-11-01] MEDS: CLONIDINE HCL 0.3MG/24HR PATCH TD SCH (08:47)
[2019-11-01 20:00] VITALS: BP 163/45
[2019-11-02] MEDS: EPOETIN ALFA 10000UNITS/ML VIAL SUBCUT SCH (00:05)
[2019-11-02] MEDS: METOPROLOL TARTRATE 25MG TABLET PO SCH ×2 (00:06→09:40)
[2019-11-02] MEDS: HYDRALAZINE HCL 50MG TABLET PO SCH ×2 (00:06→09:41)
[2019-11-02] MEDS: FAMOTIDINE 20MG TABLET PO SCH (00:06)
[2019-11-02] MEDS: BLOOD SUGAR DIAGNOSTIC STRIP TEST SCH (06:52)
[2019-11-02 08:00] VITALS: BP 150/42
[2019-11-02] MEDS: INSULIN LISPRO 100 UNITS/ML SUBCUT SCH (08:06)
[2019-11-02] MEDS: SEVELAMER CARBONATE 800 MG TABLET PO SCH (08:37)
[2019-11-02 09:27] VITALS: BP 126/74
[2019-11-02] MEDS: AMLODIPINE 10MG TABLET PO SCH (09:41)
[2019-11-02] MEDS: FOLIC ACID/VITAMIN B COMP W-C TABLET PO SCH (09:41)
[2019-11-02] MEDS: ISOSORBIDE MONONITRATE 30MG TABLET SR 24HR PO SCH (09:41)
[2019-11-02] MEDS: BENAZEPRIL 10MG TABLET PO SCH (09:41)
[2019-11-02] MEDS: ENOXAPARIN 30MG/0.3ML SYR SUBCUT SCH (09:47)
== END 2019-11-02 11:25 | disposition home health service (06) | DRG 91 ==
PROVIDERS: ADMIT Psychiatry & Neurology Neurology; ATTEND Internal Medicine
PROC: 5A1D70Z Performance of Urinary Filtration, Intermittent, Less than 6 Hours Per Day (ICD-10-PCS; principal; 2019-10-25)
PROC: 5A1D70Z Performance of Urinary Filtration, Intermittent, Less than 6 Hours Per Day (ICD-10-PCS; 2019-10-27)
PROC: 5A1D70Z Performance of Urinary Filtration, Intermittent, Less than 6 Hours Per Day (ICD-10-PCS; 2019-10-29)
PROC: 5A1D70Z Performance of Urinary Filtration, Intermittent, Less than 6 Hours Per Day (ICD-10-PCS; 2019-11-01)
DX: G92 Toxic encephalopathy (principal); N18.6 End stage renal disease; F23 Brief psychotic disorder; I12.0 Hypertensive chronic kidney disease with stage 5 chronic kidney disease or end stage renal disease; N25.81 Secondary hyperparathyroidism of renal origin; E87.2 Acidosis; E11.22 Type 2 diabetes mellitus with diabetic chronic kidney disease; E66.9 Obesity, unspecified; M48.061 Spinal stenosis, lumbar region without neurogenic claudication; R62.7 Adult failure to thrive; M54.30 Sciatica, unspecified side; D63.8 Anemia in other chronic diseases classified elsewhere; E78.5 Hyperlipidemia, unspecified; R53.81 Other malaise; D72.829 Elevated white blood cell count, unspecified; Z91.81 History of falling; Z99.2 Dependence on renal dialysis
CPT/HCPCS: 36415; 80048; 82962; 84100; 85025; 92523; 97110; 97116; 97129; 97130; 97162; 97166; 97530; 97535; J0885; J1650; J1815